=== PATIENT | female | born 1980 | race Caucasian/White ===

== ENCOUNTER 2017-07-16 16:23 | Emergency (ER) | payer MEDICAID ==
[2017-07-16 16:28] VITALS: BP 139/63
--- NOTE | 2017-07-16 17:38 | UC ---
Throat Pain/Nasal Awais HPI - HPI Summary HPI Summary: 07/13/17 SORE THROAT AND COUGH. TEMPERATURES UNKNOWN. MUSCLE ACHES TODAY. NO RASHES. FEELS LIKE SHE MIGHT HAVE THE FLU. 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 Hx Last Menstrual Period: now Onset/Duration: Sudden Onset, Lasting Days, Still Present Severity: Mild Pain Intensity: 4 Pain Scale Used: 0-10 Numeric Cough: Nonproductive Associated Signs & Symptoms: Positive: Hoarseness - Epiglottits Risk Factors Epiglottis Risk Factors: Negative - Allergies/Home Medications Allergies/Adverse Reactions: Allergies Allergy/AdvReac Type Severity Reaction Status Date / Time No Known Allergies Allergy Verified 07/16/17 16:28 PMH/Surg Hx/FS Hx/Imm Hx Previously Healthy: Yes - Surgical History Surgical History: Yes Surgery Procedure, Year, and Place: left wrist surgery tendon repair. hernia surgery x2 - Family History Known Family History: Positive: Other - MOTHER CANCER - Social History Occupation: Employed Full-time Lives: With Family Alcohol Use: Occasionally Substance Use Type: None Smoking Status (MU): Heavy Every Day Tobacco Smoker Type: Cigarettes Amount Used/How Often: ~2-3 cig per day Length of Time of Smoking/Using Tobacco: 15+ years Have You Smoked in the Last Year: Yes Cessation Counseling: Patient Advised to Stop - Immunization History Most Recent Influenza Vaccination: 07/2012 Most Recent Tetanus Shot: 2004 Review of Systems Constitutional: Fatigue Skin: Negative Eyes: Negative ENT: Sore Throat Respiratory: Cough Cardiovascular: Negative Gastrointestinal: Negative Genitourinary: Negative Motor: Negative Neurovascular: Negative Musculoskeletal: Myalgia Neurological: Negative Psychological: Negative Is Patient Immunocompromised?: No All Other Systems Reviewed And Are Negative: Yes Physical Exam Triage Information Reviewed: Yes Appearance: No Pain Distress, Well-Nourished, Ill-Appearing Vital Signs: Initial Vital Signs Temp 97.7 F 07/16/17 16:26 Pulse 83 07/16/17 16:26 Resp 18 07/16/17 16:26 BP 139/63 07/16/17 16:26 Pulse Ox 98 07/16/17 16:26 Vital Signs Reviewed: Yes Eye Exam: Normal ENT: Positive: Hearing grossly normal, Pharyngeal erythema - MILD, TMs normal. Negative: Tonsillar swelling, Tonsillar exudate Dental Exam: Normal Neck exam: Normal Neck: Positive: Supple, Nontender, No Lymphadenopathy Respiratory Exam: Other - COUGH Respiratory: Positive: Chest non-tender, Lungs clear, Normal breath sounds, No respiratory distress, No accessory muscle use Cardiovascular Exam: Normal Cardiovascular: Positive: RRR, No Murmur, Pulses Normal, Brisk Capillary Refill Abdominal Exam: Normal Abdomen Description: Positive: Nontender, No Organomegaly Musculoskeletal Exam: Normal Neurological Exam: Normal Psychological Exam: Normal Skin Exam: Normal Throat Pain/Nasal Course/Dx - Differential Dx/Diagnosis Differential Diagnosis/HQI/PQRI: Influenza, Otitis Media, Pharyngitis, Sinusitis , Tonsillitis, URI Provider Diagnoses: UPPER RESPIRATORY INFECTION Discharge - Discharge Plan Condition: Stable Disposition: HOME Prescriptions: Benzonatate CAP* [Tessalon 100 MG CAP*] 100 mg PO TID PRN #15 cap PRN Reason: Cough Patient Education Materials: Upper Respiratory Infection (ED), Viral Syndrome ( ED) Forms: *Work Release Referrals: Mary Lundberg MD [Primary Care Provider] -
== END 2017-07-16 17:25 | disposition home or self-care (01) ==
LOC: UCEAST 16:23
DX: J06.9 Acute upper respiratory infection, unspecified (principal); F17.210 Nicotine dependence, cigarettes, uncomplicated
CPT/HCPCS: 87502; 99202; G0463

== ENCOUNTER 2017-07-30 17:54 | Emergency (ER) | payer MEDICAID ==
[2017-07-30 18:17] VITALS: BP 144/82
--- NOTE | 2017-07-30 18:22 | UC ---
[facility] Dental HPI - HPI Summary HPI Summary: 36 year old female presents with right sided jaw pain. - History of Current Complaint Chief Complaint: UCDentalProblem Stated Complaint: TOOTH & JAW PAIN Time Seen by Provider: 07/30/17 18:17 Hx Obtained From: Patient Hx Last Menstrual Period: 2 weeks Onset/Duration: Sudden Onset Severity: Moderate - Allergies/Home Medications Allergies/Adverse Reactions: Allergies Allergy/AdvReac Type Severity Reaction Status Date / Time No Known Allergies Allergy Verified 07/30/17 18:18 PMH/Surg Hx/FS Hx/Imm Hx Previously Healthy: Yes - Surgical History Surgical History: Yes Surgery Procedure, Year, and Place: left wrist surgery tendon repair. hernia surgery x2 - Family History Known Family History: Positive: Other - MOTHER CANCER - Social History Alcohol Use: Occasionally Substance Use Type: None Smoking Status (MU): Heavy Every Day Tobacco Smoker Type: Cigarettes Amount Used/How Often: ~2-3 cig per day Length of Time of Smoking/Using Tobacco: 15+ years Have You Smoked in the Last Year: Yes - Immunization History Most Recent Influenza Vaccination: 07/2012 Most Recent Tetanus Shot: 2004 Review of Systems Constitutional: Negative Skin: Negative Eyes: Negative ENT: Other - right jaw pain Respiratory: Negative Cardiovascular: Negative Gastrointestinal: Negative Genitourinary: Negative Motor: Negative Neurovascular: Negative Musculoskeletal: Negative Neurological: Negative Psychological: Negative All Other Systems Reviewed And Are Negative: Yes Physical Exam Triage Information Reviewed: Yes Vital Signs: Initial Vital Signs Temp 36.6 C 07/30/17 18:10 Pulse 100 07/30/17 18:10 Resp 15 07/30/17 18:10 BP 144/82 07/30/17 18:10 Pulse Ox 97 07/30/17 18:10 Vital Signs Reviewed: Yes Eye Exam: Normal ENT: Positive: Other: - right TMJ pain Dental Exam: Normal Neck exam: Normal Neck: Positive: 1 Respiratory Exam: Normal Cardiovascular Exam: Normal Abdominal Exam: Normal Musculoskeletal Exam: Normal Neurological Exam: Normal Psychological Exam: Normal Skin Exam: Normal Dental Complaint Course/Dx - Differential Dx/Diagnosis Provider Diagnoses: right tmj pain Discharge - Discharge Plan Condition: Stable Disposition: HOME Prescriptions: Methylprednisolone [Medrol Dosepak 4 MG*] 4 mg PO .SEE JOSÉ MIGUEL [employer]CTION #21 tab Patient Education Materials: Temporomandibular Disorder (ED) Referrals: Mary Lundberg MD [Primary Care Provider] -
== END 2017-07-30 18:26 | disposition home or self-care (01) ==
LOC: UCEAST 17:54
DX: M26.601 Right temporomandibular joint disorder, unspecified (principal); F17.210 Nicotine dependence, cigarettes, uncomplicated
CPT/HCPCS: 99212; G0463

== ENCOUNTER 2017-11-07 18:41 | Emergency (ER) | payer SELFPAY ==
[2017-11-07 21:35] VITALS: BP 129/82
--- NOTE | 2017-11-07 21:40 | UC ---
Lower Extremity/Ankle HPI - HPI Summary HPI Summary: 9 days ago got hit on the top if here right foot with a spade she was breaking up ice with-this put a hole in her boot and caused a wound on the top of her foot---she has been soaking her foot multiple times a day and using neosporin and bulky dressings--she has been going to work but her foot continues to hurt to WB. wound is healing no drainage or erythema, Full ROM distal to injury - History of Current Complaint Chief Complaint: UCLowerExtremity Stated Complaint: FOOT INJURY Time Seen by Provider: 11/07/17 21:37 Hx Obtained From: Patient Hx Last Menstrual Period: 10/28/17 ?: No Onset/Duration: Sudden Onset, Lasting Days - 9 Severity Initially: Moderate Severity Currently: Moderate Pain Intensity: 0 Aggravating Factor(s): Standing, Ambulation Alleviating Factor(s): Rest, Elevation Able to Bear Weight: Yes - with pain - Allergies/Home Medications Allergies/Adverse Reactions: Allergies Allergy/AdvReac Type Severity Reaction Status Date / Time No Known Allergies Allergy Verified 11/07/17 21:25 PMH/Surg Hx/FS Hx/Imm Hx Previously Healthy: Yes - Surgical History Surgical History: Yes Surgery Procedure, Year, and Place: left wrist surgery tendon repair. hernia surgery x2 - Family History Known Family History: Positive: Other - MOTHER CANCER - Social History Occupation: Employed Full-time Lives: With Family Alcohol Use: Rare Substance Use Type: None Smoking Status (MU): Heavy Every Day Tobacco Smoker Type: Cigarettes Amount Used/How Often: 1 ppd Length of Time of Smoking/Using Tobacco: 15+ years Have You Smoked in the Last Year: Yes - Immunization History Most Recent Influenza Vaccination: 07/2012 Most Recent Tetanus Shot: 2004 Review of Systems Constitutional: Negative Skin: Negative, Other - scabbed area on top of right foot Eyes: Negative ENT: Negative Respiratory: Negative Cardiovascular: Negative Gastrointestinal: Negative Genitourinary: Negative Motor: Negative Neurovascular: Negative Musculoskeletal: Arthralgia - pain mid-distal 3/4 metatarsal Neurological: Negative Psychological: Negative Is Patient Immunocompromised?: No All Other Systems Reviewed And Are Negative: Yes Physical Exam Triage Information Reviewed: Yes Appearance: Well-Appearing, No Pain Distress, Well-Nourished Vital Signs: Initial Vital Signs Temp 99.3 F 11/07/17 21:26 Pulse 103 11/07/17 21:26 Resp 18 11/07/17 21:26 BP 129/82 11/07/17 21:26 Pulse Ox 100 11/07/17 21:26 Vital Signs Reviewed: Yes Eye Exam: Normal Eyes: Positive: Conjunctiva Clear ENT Exam: Normal ENT: Positive: Normal ENT inspection, Hearing grossly normal. Negative: Trismus , Muffled voice, Hoarse voice Dental Exam: Normal Neck exam: Normal Neck: Positive: Supple, Nontender Respiratory Exam: Normal Respiratory: Positive: Chest non-tender, Lungs clear, Normal breath sounds, No respiratory distress, No accessory muscle use Cardiovascular Exam: Normal Cardiovascular: Positive: RRR, No Murmur, Pulses Normal, Brisk Capillary Refill Musculoskeletal Exam: Normal Musculoskeletal: Positive: Strength Intact, ROM Intact, Edema @ - right foot Neurological Exam: Normal Neurological: Positive: Alert, Muscle Tone Normal Psychological Exam: Normal Skin Exam: Normal Skin: Positive: Other - scabbed wounf about 5mm diameter top of right foot Diagnostics - Radiology No standard instances Xray Interpretation: Positive (See Comments) - fracture ofthird distal metatarsal, begin bone cyst vs osteo vs, traumatic changes Radiology Interpretation Completed By: ED Physician, Radiologist Lower Extremity Course/Dx - Course Course Of Treatment: Up date Tetanus, augmentin, cam boot, pain med, rice, follow with ortho off work until cleared - Differential Dx/Diagnosis Provider Diagnoses: open fracture (9 days ago) right 3rd metatarsal Discharge - Discharge Plan Condition: Stable Disposition: HOME Prescriptions: Amoxicillin/Clavulanate TAB* [Augmentin TAB 875*] 875 mg PO BID #19 tab Hydrocodone-Acetaminophen [Hydrocodone/Acetaminophen 5-325 mg] 1 tab PO Q6H PRN #16 tab MDD 4 PRN Reason: Pain - Moderate To Severe Ibuprofen TAB* [Motrin TAB* 600 MG] 600 mg PO Q6H PRN #30 tab PRN Reason: pain Patient Education Materials: Diphtheria/Acellular Pertussis/Tetanus Booster Vaccine (By injection), Foot Fracture in Adults (ED), Warm Compress or Soak (ED) Forms: *Work Release Referrals: Roosevelt Lala MD [Medical Doctor] - 3 Days
--- NOTE | 2017-11-07 22:05 | RAD ---
INDICATION: Crush injury, open wound. TECHNIQUE: 3 views of the right foot were obtained. FINDINGS: There is soft tissue swelling present dorsal to the metatarsal bones. There is a small linear calcific density adjacent to the medial aspect of the distal third metatarsal possibly representing a fracture fragment. There is a lucent area within the bone at this level possibly posttraumatic although osteomyelitis cannot be excluded. IMPRESSION: 1. LINEAR CALCIFIC DENSITY ADJACENT TO THE DISTAL THIRD METATARSAL POSSIBLY REPRESENTING A FRACTURE FRAGMENT. 2. LUCENT LESION IN THE ADJACENT DISTAL THIRD METATARSAL DIFFERENTIAL DIAGNOSIS WOULD INCLUDE POSTTRAUMATIC CHANGE, OSTEOMYELITIS OR BENIGN BONY LESION.
[2017-11-07] MEDS ORDERED: Amoxicillin/Clavulanate TAB* 875 MG PO ONE (22:18)
[2017-11-07] MEDS ORDERED: Mupirocin 2% OINT* TUBE TOPICAL ONE (22:18)
[2017-11-07] MEDS ORDERED: Tetan/Diph/Pertus SYR(Tdap)* 0.5 ML SYR(BOOSTRIX) use SYR IM ONE (22:18)
[2017-11-07] MEDS ORDERED: HYDROcodone/ACETAMIN 5-325 MG* 1 TAB PO ONE (22:20)
== END 2017-11-07 22:50 | disposition home or self-care (01) ==
LOC: UCEAST 18:41
DX: S92.334 Nondisplaced fracture of third metatarsal bone, right foot (principal); W22.8XXA Striking against or struck by other objects, initial encounter; Y93.89 Activity, other specified; Y92.9 Unspecified place or not applicable; F17.210 Nicotine dependence, cigarettes, uncomplicated
CPT/HCPCS: 90715; 99213; A9270-GY; G0463